=== PATIENT | male | born 1970 | race African-American/Black ===

== ENCOUNTER 2017-02-06 18:58 | Emergency (ER) | payer BC ==
[~2017-02-06] VITALS: Ht 182.9 cm; Wt 107.0 kg
[2017-02-06] MEDS ORDERED: MORPHINE SULFATE 4 MG/ML CPJ (NOT FOR IM USE) IV ONE (19:30)
[2017-02-06] MEDS ORDERED: ONDANSETRON HCL 4MG/2ML VIAL IV ONE ×2 (19:30→21:00)
[2017-02-06] MEDS ORDERED: PROPOFOL 200MG/20ML VIAL IV ONE (21:00)
[2017-02-06] MEDS ORDERED: HYDROCODONE/ACETAMINOPHEN 5/325MG TABLET PO ONE (22:30)
[2017-02-06 23:03] VITALS: BP 126/76
== END 2017-02-06 23:48 | disposition home or self-care (01) ==
LOC: ER 19:08
DX: S52.592A Other fractures of lower end of left radius, initial encounter for closed fracture (principal); S42.034A Nondisplaced fracture of lateral end of right clavicle, initial encounter for closed fracture; M32.9 Systemic lupus erythematosus, unspecified; Z88.8 Allergy status to other drugs, medicaments and biological substances; Z98.890 Other specified postprocedural states; W10.8XXA Fall (on) (from) other stairs and steps, initial encounter; Y93.89 Activity, other specified; Y92.018 Other place in single-family (private) house as the place of occurrence of the external cause
CPT/HCPCS: 70450; 71045; 73030; 73110; 96374; 96375; 96376; 99152; 99285; J2270; J2405; J7030; Z7610; 24650; A4565; J2704

== ENCOUNTER 2023-06-06 07:10 | Emergency (ER) | payer BC ==
[~2023-06-06] VITALS: Ht 182.9 cm; Wt 102.0 kg
[2023-06-06 07:15] VITALS: O2SAT 100
[2023-06-06 08:12] LABS: BASOPHILS % 0.4 % (0.0-2.0); EOSINOPHILS % 2.7 % (0.0-5.0); HEMATOCRIT. 42.3 % (42.0-52.0); HEMOGLOBIN. 14.3 g/dL (14.0-18.0); LYMPHOCYTES % 43.9 % (20.0-50.0); MEAN CORPUSCULAR HEMOGLOBIN 30.9 pg (28.0-32.0); MEAN CORPUSCULAR HGB CONC 33.7 g/dL (31.0-37.0); MEAN CORPUSCULAR VOLUME 91.7 fL (80.0-94.0); MEAN PLATELET VOLUME 7.9 fl (7.4-10.4); MONOCYTES % 10.8 % (2.0-8.0); NEUTROPHILS % 42.2 % (40.0-76.0); PLATELET 179 x1000/uL (130-400); RED BLOOD CELL COUNT 4.61 mill/uL (4.7-6.1); RED CELL DISTRIBUTION WIDTH 14.1 % (11.6-14.6); WHITE BLOOD COUNT 5.3 x1000/uL (4.5-11.0)
[2023-06-06 08:26] LABS: CARBON DIOXIDE 25 mEq/L (21-32); CHLORIDE 108 mEq/L (98-107); POTASSIUM 3.8 mEq/L (3.5-5.1); SODIUM 140 mEq/L (136-145)
[2023-06-06 08:31] LABS: CREATININE 1.2 mg/dL (0.6-1.3); TROPONIN I HIGH SENSITIVITY 7 ng/L (3.0-53)
[2023-06-06 08:32] LABS: GLUCOSE 105 mg/dL (70-105); UREA NITROGEN BLOOD 12 mg/dL (9-23)
[2023-06-06 09:30] VITALS: TEMP 98
[2023-06-06] MEDS: ASPIRIN 81MG TABLET PO ONE (10:01)
[2023-06-06 11:20] LABS: TROPONIN I HIGH SENSITIVITY 6 ng/L (3.0-53)
[2023-06-06 11:43] VITALS: BP 145/99; PULSE 70; RESP 16
== END 2023-06-06 11:44 | disposition home or self-care (01) ==
LOC: ER 07:10
DX: R07.9 Chest pain, unspecified (principal); F19.90 Other psychoactive substance use, unspecified, uncomplicated; I10 Essential (primary) hypertension; Z88.8 Allergy status to other drugs, medicaments and biological substances
CPT/HCPCS: 80048; 85025; 84484; 36415; 71045; 93005; 99285; Z7610

== ENCOUNTER 2024-04-25 20:07 | Inpatient (IN) | payer BC, MEDICAID ==
[~2024-04-25] VITALS: Ht 182.9 cm; Wt 109.9 kg
[2024-04-25 20:47] LABS: BASOPHILS % 0.9 % (0.0-2.0); EOSINOPHILS % 2.5 % (0.0-5.0); HEMATOCRIT. 41.3 % (42.0-52.0); HEMOGLOBIN. 13.7 g/dL (14.0-18.0); LYMPHOCYTES % 22.8 % (20.0-50.0); MEAN CORPUSCULAR HEMOGLOBIN 29.8 pg (28.0-32.0); MEAN CORPUSCULAR HGB CONC 33.1 g/dL (31.0-37.0); MEAN CORPUSCULAR VOLUME 89.9 fL (80.0-94.0); MEAN PLATELET VOLUME 7.8 fl (7.4-10.4); MONOCYTES % 9.6 % (2.0-8.0); NEUTROPHILS % 64.2 % (40.0-76.0); PLATELET 191 x1000/uL (130-400); RED BLOOD CELL COUNT 4.59 mill/uL (4.7-6.1); WHITE BLOOD COUNT 6.8 x1000/uL (4.5-11.0)
[2024-04-25 20:55] LABS: CHLORIDE 104 mEq/L (98-107); POTASSIUM 3.8 mEq/L (3.5-5.1); SODIUM 140 mEq/L (136-145)
[2024-04-25 20:56] LABS: CALCIUM 9.6 mg/dL (8.7-10.4); CARBON DIOXIDE 28 mEq/L (21-32)
[2024-04-25 21:01] LABS: CREATININE 1.3 mg/dL (0.6-1.3); GLUCOSE 97 mg/dL (70-105); UREA NITROGEN BLOOD 12 mg/dL (9-23)
[2024-04-25 21:02] LABS: TROPONIN I HIGH SENSITIVITY 4 ng/L (3.0-53)
[2024-04-25] MEDS: MORPHINE SULFATE 4 MG/ML INJ (FOR IV/IM USE) IV STA (23:08)
[2024-04-25] MEDS: LABETALOL 5MG/ML 4ML INJ IV ONE (23:08)
[2024-04-26 04:38] VITALS: BP 153/91; PULSE 83; RESP 16; TEMP 36.2; O2SAT 100
[2024-04-26] MEDS ORDERED: AMLO10TA80 MT (04:43)
[2024-04-26] MEDS ORDERED: IBUP-2030 PO (04:43)
[2024-04-26] MEDS ORDERED: ROSU40TA MT (04:43)
[2024-04-26 04:55] LABS: TROPONIN I HIGH SENSITIVITY 4 ng/L (3.0-53)
[2024-04-26 05:01] VITALS: BP 153/79; PULSE 83; RESP 16; TEMP 36.3
[2024-04-26] MEDS ORDERED: OXYCODONE HCL/ACETAMINOPHEN 5/325MG TABLET PO PRN (06:30)
[2024-04-26] MEDS ORDERED: NALOXONE HCL 0.4MG/ML VIAL IV PRN (07:00)
[2024-04-26 08:00] VITALS: BP 165/94; PULSE 77; RESP 18; TEMP 36.7; O2SAT 98
[2024-04-26] MEDS: ASPIRIN 81MG TABLET PO SCH (09:09)
[2024-04-26] MEDS: ENOXAPARIN 30MG/0.3ML SYR SUBCUT SCH (09:10)
[2024-04-26 09:11] LABS: LDL CHOLESTEROL 88 mg/dL (5-100); TRIGLYCERIDE 137 mg/dL (0-150)
[2024-04-26 09:12] LABS: CHOLESTEROL 161 mg/dL (<200); HDL CHOLESTEROL 46 mg/dL (>55)
[2024-04-26 09:15] LABS: THYROID STIMULATING HORMONE 2.13 uIU/mL (0.55-4.78)
[2024-04-26] MEDS ORDERED: IPRATROPIUM/ALBUTEROL 0.5-3(2.5)MG/3ML NEB HHN PRN (10:45)
[2024-04-26] MEDS ORDERED: DOCUSATE SODIUM 100MG CAPSULE PO PRN (10:45)
[2024-04-26] MEDS ORDERED: AZITHROMYCIN 500MG/250ML 250 ML IV SCH (10:45)
[2024-04-26] MEDS ORDERED: ONDANSETRON HCL 4MG/2ML INJ IV PRN (10:45)
[2024-04-26 11:12] LABS: *AMPHETAMINES SCREEN URINE NEGATIVE (NEGATIVE); *BARBITURATES SCREEN URINE NEGATIVE (NEGATIVE); *BENZODIAZEPINES SCREEN URINE NEGATIVE (NEGATIVE); *COCAINE SCREEN URINE NEGATIVE (NEGATIVE); METHADONE URINE SCREEN NEGATIVE (NEGATIVE)
[2024-04-26 11:13] LABS: CANNABINOID URINE SCREEN NEGATIVE (NEGATIVE); ECSTASY MDMA SCREEN URINE NEGATIVE (NEGATIVE); OPIATES URINE SCREEN PRESUMPTIVE POSITIVE (NEGATIVE); PHENCYCLIDINE URINE SCREEN NEGATIVE (NEGATIVE)
[2024-04-26] MEDS: FAMOTIDINE 20MG/2ML VIAL IV SCH (11:28)
[2024-04-26 12:00] VITALS: BP 171/115; PULSE 105; RESP 16; TEMP 36.6; O2SAT 99
[2024-04-26 12:47] LABS: CREATINE KINASE MB FRACTION 0.9 ng/mL (0.5-3.6)
[2024-04-26 12:51] LABS: T4 FREE 1.27 ng/dL (0.89-1.76)
[2024-04-26] MEDS: CLONIDINE 0.1MG TABLET PO PRN (12:53)
[2024-04-26] MEDS: ACETAMINOPHEN 325MG TABLET PO PRN (12:58)
[2024-04-26] MEDS: AZITHROMYCIN 500MG/250ML 250 ML IV SCH (13:35)
[2024-04-26 16:00] VITALS: BP 153/85; PULSE 99; RESP 18; TEMP 36.7; O2SAT 99
[2024-04-26 16:16] LABS: TROPONIN I HIGH SENSITIVITY 5 ng/L (3.0-53)
[2024-04-26 20:00] VITALS: BP 157/86; PULSE 82; RESP 18; TEMP 36.6; O2SAT 96
[2024-04-26] MEDS: HYDRALAZINE HCL 25MG TABLET PO SCH (21:03)
[2024-04-26 22:39] LABS: CLARITY URINE CLEAR (CLEAR); COLOR URINE YELLOW (YELLOW); GLUCOSE URINE NEGATIVE (NEGATIVE); KETONES URINE NEGATIVE (NEGATIVE); LEUKOCYTE ESTERASE URINE TRACE (NEGATIVE); NITRITE URINE NEGATIVE (NEGATIVE); OCCULT BLOOD URINE NEGATIVE (NEGATIVE); PH URINE 6.5 (4.5-8.0); PROTEIN URINE NEGATIVE (NEGATIVE); SPECIFIC GRAVITY URINE 1.015 (1.005-1.030); UROBILINOGEN URINE 0.2 E.U./dL (0.2-1.0)
[2024-04-26 23:37] LABS: BACTERIA URINE 1+; RBC URINE 0-2 /hpf (0-2); SQUAMOUS EPITHELIAL CELL URINE RARE /lpf (RARE/1+); WBC URINE 0-2 /hpf (0-2)
[2024-04-27] VITALS: BP 142/83; PULSE 75; RESP 18; TEMP 36.6; O2SAT 96
[2024-04-27 00:41] LABS: TROPONIN I HIGH SENSITIVITY 4 ng/L (3.0-53)
[2024-04-27 03:06] LABS: INFLUENZA TYPE A Presumptive Negative (Pres. Neg.); INFLUENZA TYPE B Presumptive Negative (Pres. Neg.)
[2024-04-27 04:00] VITALS: BP 135/85; PULSE 71; RESP 18; TEMP 36.6; O2SAT 97
[2024-04-27 06:46] LABS: HEMATOCRIT. 39.6 % (42.0-52.0); HEMOGLOBIN. 13.2 g/dL (14.0-18.0); MEAN CORPUSCULAR HEMOGLOBIN 29.6 pg (28.0-32.0); MEAN CORPUSCULAR HGB CONC 33.3 g/dL (31.0-37.0); MEAN CORPUSCULAR VOLUME 88.7 fL (80.0-94.0); MEAN PLATELET VOLUME 8.7 fl (7.4-10.4); PLATELET 159 x1000/uL (130-400); RED BLOOD CELL COUNT 4.47 mill/uL (4.7-6.1); WHITE BLOOD COUNT 5.6 x1000/uL (4.5-11.0)
[2024-04-27 07:05] LABS: CARBON DIOXIDE 26 mEq/L (21-32); CHLORIDE 106 mEq/L (98-107); POTASSIUM 3.8 mEq/L (3.5-5.1); PROTHROMBIN TIME 10.8 sec (9.6-11.0); SODIUM 141 mEq/L (136-145)
[2024-04-27 07:10] LABS: CREATININE 1.1 mg/dL (0.6-1.3)
[2024-04-27 07:11] LABS: ALANINE AMINOTRANSFERASE 23 IU/L (10-49); ALBUMIN 3.9 g/dL (3.2-4.8); ASPARTATE AMINOTRANSFERASE 20 IU/L (<34); GLUCOSE 108 mg/dL (70-105); PROTEIN TOTAL 6.5 g/dL (6.0-8.3); TRIGLYCERIDE 78 mg/dL (0-150); UREA NITROGEN BLOOD 13 mg/dL (9-23)
[2024-04-27 07:12] LABS: CHOLESTEROL 154 mg/dL (<200); LDL CHOLESTEROL 88 mg/dL (5-100)
[2024-04-27 07:13] LABS: BILIRUBIN DIRECT 0.2 mg/dL (<=3.0); BILIRUBIN TOTAL 0.6 mg/dL (0.1-1.0); HDL CHOLESTEROL 44 mg/dL (>55); PHOSPHORUS 3.3 mg/dL (2.5-4.9)
[2024-04-27 07:34] LABS: DIFFERENTIAL COMMENT 1
[2024-04-27 08:00] VITALS: BP 133/85; PULSE 71; RESP 18; TEMP 36.4; O2SAT 97
[2024-04-27 08:02] VITALS: BP 145/93; PULSE 66; RESP 20; TEMP 36.6; O2SAT 96
[2024-04-27 12:00] VITALS: BP 139/84; PULSE 84; RESP 18; TEMP 36.2; O2SAT 97
[2024-04-27] MEDS: CEFTRIAXONE 1GM/50ML 50 ML IV SCH (12:25)
[2024-04-27 12:45] LABS: CREATINE KINASE 295 IU/L (46-171)
[2024-04-27] MEDS ORDERED: HYDRALAZINE HCL 50MG TABLET PO SCH (14:00)
[2024-04-27] MEDS ORDERED: ASPI-1497 MT (14:25)
[2024-04-27] MEDS ORDERED: HYDR50TA40 MT (14:25)
[2024-04-27] MEDS ORDERED: CIPR-263 MT (14:25)
[2024-04-27 14:32] VITALS: BP 139/84; PULSE 84; TEMP 97.1; O2SAT 97
[2024-04-27 15:55] LABS: PLATELET ESTIMATE NORMAL
== END 2024-04-27 15:15 | disposition home or self-care (01) | DRG 199 ==
LOC: ER 20:07 → 7WST 04-26 01:34 → EDBEDREQ 04-26 01:38 → EDBEDREQTM 04-26 01:38 → EDBEDREQDT 04-26 01:38
PROVIDERS: ADMIT Internal Medicine; ATTEND Internal Medicine
DX: I16.0 Hypertensive urgency (principal); E66.9 Obesity, unspecified; J01.00 Acute maxillary sinusitis, unspecified; Z20.822 Contact with and (suspected) exposure to COVID-19; R07.89 Other chest pain; N39.0 Urinary tract infection, site not specified; Z88.8 Allergy status to other drugs, medicaments and biological substances; Z68.32 Body mass index [BMI] 32.0-32.9, adult
CPT/HCPCS: 36415; 71045; 71275; 76857; 80048; 80061; 80076; 80305; 81003; 82550; 82553; 83735; 83880; 84100; 84439; 84443; 84480; 84484; 85025; 85379; 87426; 87804; 93005; 99285; J0456; J0696; J1650; J2270; J3490